=== PATIENT | male | born 1955 | race Caucasian/White ===

== ENCOUNTER 2019-10-29 09:16 | Day surgery (SDC) | payer MEDICARE ==
[~2019-10-29] VITALS: Ht 177.8 cm; Wt 108.1 kg
[2019-10-29 09:46] VITALS: BP 94/63; PULSE 68; TEMP 97.5
[2019-10-29] MEDS ORDERED: ASPIRIN E.C. 8181 MG PO (09:53)
[2019-10-29] MEDS ORDERED: BARACLUDE1 MG PO (09:54)
[2019-10-29] MEDS ORDERED: PEPCID 20MG TAB20 MG PO (09:54)
[2019-10-29] MEDS ORDERED: PRINZIDE 12.5 M1 TA1 PO (09:56)
[2019-10-29] MEDS ORDERED: LIPITOR 10MG10 MG PO (09:56)
[2019-10-29] MEDS ORDERED: GLUCOPHAGE500 MG/TAB PO (09:57)
[2019-10-29] MEDS ORDERED: CORGARD40 MG PO (09:57)
[2019-10-29] MEDS ORDERED: K-DUR20 MEQ PO (09:58)
--- NOTE | 2019-10-29 09:59 | NUR ---
TO RM AT 0925- CALL LIGHT IN REACH AT BEDSIDE.
[2019-10-29] MEDS ORDERED: ULTRAM 50MG TAB50 MG PO (10:03)
[2019-10-29 10:50] VITALS: BP 128/86; PULSE 68; TEMP 97.6
--- NOTE | 2019-10-29 10:50 | NUR ---
Patient arrives to [facility] via cart, accompanied by Endo RN Salima. Bedside report received. Patient to have clear liquids. He is drowsy, but aroused to name and ambulates with standby assist to chair in room. Monitoring is applied- VSS and WNL on room air. Spouse is at the bedside. Call light inreach. Denies pain or nausea.
[2019-10-29 11:05] VITALS: BP 127/83; PULSE 68
--- NOTE | 2019-10-29 11:05 | NUR ---
Patient is more awake. Dr. Mckeon is at the bedside and talks with the patient and his . Offered and receives juice to drink.
[2019-10-29 11:20] VITALS: BP 122/83; PULSE 62
[2019-10-29 11:35] VITALS: BP 126/82; PULSE 65
--- NOTE | 2019-10-29 11:50 | NUR ---
Patient has met discharge criteria. Discharge instructions discussed, denies any questions, and verbalizes understanding. PIV removed with catheter intact and hemostasis achieved. Escorted to exit via wheelchair by staff. Discharged to home with ride in private vehicle at 1150.
== END 2019-10-29 11:50 | disposition home or self-care (01) ==
LOC: SDCO 09:16
DX: K74.60 Unspecified cirrhosis of liver (principal); I85.10 Secondary esophageal varices without bleeding; I10 Essential (primary) hypertension; K21.9 Gastro-esophageal reflux disease without esophagitis; E11.42 Type 2 diabetes mellitus with diabetic polyneuropathy; Z79.84 Long term (current) use of oral hypoglycemic drugs; Z96.659 Presence of unspecified artificial knee joint; Z79.82 Long term (current) use of aspirin; Z90.49 Acquired absence of other specified parts of digestive tract; Z85.79 Personal history of other malignant neoplasms of lymphoid, hematopoietic and related tissues; Z86.73 Personal history of transient ischemic attack (TIA), and cerebral infarction without residual deficits
CPT/HCPCS: J2704; J7030

== ENCOUNTER 2019-11-26 09:13 | Day surgery (SDC) | payer MEDICARE ==
[~2019-11-26] VITALS: Ht 177.8 cm; Wt 109.1 kg
[~2019-11-26 09:13] MED LIST: ASPIRIN E.C. 8181 MG PO; BARACLUDE1 MG PO; CORGARD40 MG PO; GLUCOPHAGE500 MG/TAB PO; K-DUR20 MEQ PO; LIPITOR 10MG10 MG PO; PEPCID 20MG TAB20 MG PO; PRINZIDE 12.5 M1 TA1 PO; ULTRAM 50MG TAB50 MG PO
[2019-11-26] MEDS ORDERED: PLAVIX 75MG TAB75 MG PO (09:40)
[2019-11-26 10:10] VITALS: BP 99/72; PULSE 69; TEMP 97.6
[2019-11-26 11:40] VITALS: BP 112/78; PULSE 63; TEMP 98.1
--- NOTE | 2019-11-26 11:40 | NUR ---
Patient brought back to [facility] via cart. Transfered to chair with 2 assist. Ban RN at bedside for report. Placed on monitors, vital signs stable. Pt complains of pain 4/10 to throat and center chest. Spoke with MD start with liquid diet at this time. Water provided. Pt has home tramadol at bedside. Per MD may take. Call gaming within reach, at bedside. Will continue to monitor.
[2019-11-26 11:55] VITALS: BP 107/84; PULSE 67
--- NOTE | 2019-11-26 11:55 | NUR ---
Patient tolerating water without difficulty. Requesting cranberry juice at this time. Will continue to monitor.
[2019-11-26 12:10] VITALS: BP 121/73; PULSE 64
--- NOTE | 2019-11-26 12:10 | NUR ---
Patient states pain is more tolerable. Tolerating drinks without difficulty. Per Dr. Mckeon may take blood thinners starting tomorrow. Communicated to family. Vitals stable. Will monitor.
--- NOTE | 2019-11-26 12:30 | NUR ---
Discharge instructions reviewed with patient and . All questions answered. IV removed without difficulty. Patient to get dressed at this time.
[2019-11-26 12:40] VITALS: BP 112/78; PULSE 66
--- NOTE | 2019-11-26 12:40 | NUR ---
Patient brought down to lobby via wheel chair. To be driven home by .
== END 2019-11-26 12:40 | disposition home or self-care (01) ==
LOC: SDCO 09:13
DX: I85.00 Esophageal varices without bleeding (principal); K74.60 Unspecified cirrhosis of liver; I10 Essential (primary) hypertension; K21.9 Gastro-esophageal reflux disease without esophagitis; B18.1 Chronic viral hepatitis B without delta-agent; C85.90 Non-Hodgkin lymphoma, unspecified, unspecified site; E11.40 Type 2 diabetes mellitus with diabetic neuropathy, unspecified; Z86.73 Personal history of transient ischemic attack (TIA), and cerebral infarction without residual deficits; Z79.84 Long term (current) use of oral hypoglycemic drugs; Z79.02 Long term (current) use of antithrombotics/antiplatelets; Z79.82 Long term (current) use of aspirin; Z79.899 Other long term (current) drug therapy
CPT/HCPCS: J2704; J7030

== ENCOUNTER 2020-02-11 10:01 | Day surgery (SDC) | payer MEDICARE ==
[~2020-02-11] VITALS: Ht 177.8 cm; Wt 112.1 kg
[~2020-02-11 10:01] MED LIST changes: +PLAVIX 75MG TAB75 MG PO
[2020-02-11 10:36] VITALS: BP 117/77; PULSE 66; TEMP 97.7
[2020-02-11 11:35] VITALS: BP 122/87; PULSE 68; TEMP 97.1
--- NOTE | 2020-02-11 11:35 | NUR ---
Pt arrived back to room with Abdias Mendez RN via cart. Pt ambulated easily to chair with stand by assist. Received report at chairside from GOYO Calero. VSS and WNL and pt alert and oriented. Reviewed with pt the goals of discharge, and he agrees with plan. Cranberry juice brought per pt's request. Call light within reach and no further questions at this time.
--- NOTE | 2020-02-11 11:35 | NUR ---
Pt arrived back to room via cart with Andrea RN. Pt ambulated easily to chair with stand by assist. Pt awake, alert, and oriented. Received report at chairside from GOYO Calero. Reviewed with pt the goals for discharge. Pt agrees with plan and expresses understanding. VSS and WNL. Provider at chairside to review procedure with patient. Pt has no further questions at this time.
[2020-02-11 11:45] VITALS: BP 126/80; PULSE 66
--- NOTE | 2020-02-11 11:45 | NUR ---
Pt successfully finished cranberry juice without complaints of pain or nausea. Pt states that this is the "best he's felt" after a banding procedure. He is alert, awake, and oriented.
[2020-02-11 12:00] VITALS: BP 123/81; PULSE 65
--- NOTE | 2020-02-11 12:00 | NUR ---
Pt states that he is ready to go home, and he meets criteria for discharge. Provider already reviewed procedure and plan with patient at chair side. Pt has no further questions or concerns. VSS and WNL. Reviewed discharge information and educational packet including signs/symptoms to look for and when to call the doctor.
== END 2020-02-11 12:05 | disposition home or self-care (01) ==
LOC: SDCO 10:01
DX: K74.60 Unspecified cirrhosis of liver (principal); I85.10 Secondary esophageal varices without bleeding; E66.9 Obesity, unspecified; I10 Essential (primary) hypertension; E03.9 Hypothyroidism, unspecified; Z86.73 Personal history of transient ischemic attack (TIA), and cerebral infarction without residual deficits; E11.9 Type 2 diabetes mellitus without complications; E11.42 Type 2 diabetes mellitus with diabetic polyneuropathy; Z79.84 Long term (current) use of oral hypoglycemic drugs; Z90.49 Acquired absence of other specified parts of digestive tract; Z79.82 Long term (current) use of aspirin; Z96.659 Presence of unspecified artificial knee joint; Z85.72 Personal history of non-Hodgkin lymphomas
CPT/HCPCS: J2704; J7030

== ENCOUNTER 2020-03-24 10:15 | Day surgery (SDC) | payer MEDICARE ==
[~2020-03-24] VITALS: Ht 177.8 cm; Wt 107.7 kg
[2020-03-24] MEDS ORDERED: CEPHALEXIN500 M1 PO (10:40)
[2020-03-24 11:08] VITALS: BP 111/79; PULSE 70; TEMP 98.5
[2020-03-24 12:10] VITALS: BP 118/76; PULSE 64; TEMP 97.5
--- NOTE | 2020-03-24 12:10 | NUR ---
Patient arrives back to [facility] alert, denies pain or nausea. Patient monitor applied, vitals stable. Patient given muffin and juice.
[2020-03-24 12:25] VITALS: BP 117/78; PULSE 62
--- NOTE | 2020-03-24 12:25 | NUR ---
Patient tolerates muffin and juice without any nausea. Denies pain, vitals stable.
[2020-03-24 12:40] VITALS: BP 113/75; PULSE 63
--- NOTE | 2020-03-24 12:45 | NUR ---
Dismissal instructions gone over with patient. Patient voices understanding and all questions answered.
--- NOTE | 2020-03-24 12:55 | NUR ---
Patient discharged to private vehicle at patient enterance via wheelchair without any complications. Patient leaves thanking staff for services.
== END 2020-03-24 12:55 | disposition home or self-care (01) ==
LOC: SDCO 10:15
DX: K74.60 Unspecified cirrhosis of liver (principal); I85.10 Secondary esophageal varices without bleeding; I10 Essential (primary) hypertension; K21.9 Gastro-esophageal reflux disease without esophagitis; E11.9 Type 2 diabetes mellitus without complications; Z86.73 Personal history of transient ischemic attack (TIA), and cerebral infarction without residual deficits; Z79.84 Long term (current) use of oral hypoglycemic drugs; Z96.652 Presence of left artificial knee joint; Z90.49 Acquired absence of other specified parts of digestive tract; Z79.02 Long term (current) use of antithrombotics/antiplatelets
CPT/HCPCS: J7030

== ENCOUNTER 2021-03-30 07:50 | Day surgery (SDC) | payer MEDICARE ==
[~2021-03-30] VITALS: Ht 177.8 cm; Wt 110.5 kg
[~2021-03-30 07:50] MED LIST changes: +CEPHALEXIN500 M1 PO
[2021-03-30 08:41] VITALS: BP 126/85; PULSE 70; TEMP 97.4
[2021-03-30 09:15] VITALS: BP 101/65; PULSE 75; TEMP 97.6
--- NOTE | 2021-03-30 09:15 | NUR ---
TRANSPORTED BY CART TO DISCHARGE ROOM ACCOMPANIED BY A NURSE, ABLE TO AMBULATE TO A RECLINER W/ STANDBY ASSISTANCE, ALERT AND ORIENTED X3, SPOUSE IN THE ROOM, DENIES DISCOMFORT OR NAUSEA, IV INFUSION W/O DIFFICULTY, REQUESTING JUICE AND MUFFIN, CALL LIGHT IN REACH, MONITORS ON AND ALARMS SET.
[2021-03-30 09:30] VITALS: BP 103/65; PULSE 75
--- NOTE | 2021-03-30 09:30 | NUR ---
TOLERATED FLUIDS AND MUFFIN W/O DIFFICULTY, VITAL SIGNS REMAIN STABLE
[2021-03-30 09:45] VITALS: BP 104/60; PULSE 75
--- NOTE | 2021-03-30 09:45 | NUR ---
IV DC'D IN RIGHT HAND AND HARVEY W/ ABBY AT THE SITE, ABLE TO CHANGE INTO STREET CLOTHS W/O ASSISTANCE, DISCHARGE INSTRUCTIONS REVIEWED AND A COPY SENT WITH PATIENT IN HIS PACKET, SPOUSE LEFT TO BRING CAR TO OUTPATIENT ENTERENCE.
== END 2021-03-30 09:55 | disposition home or self-care (01) ==
LOC: SDCO 07:50
DX: K74.60 Unspecified cirrhosis of liver (principal); I85.10 Secondary esophageal varices without bleeding; I10 Essential (primary) hypertension; K21.9 Gastro-esophageal reflux disease without esophagitis; E11.9 Type 2 diabetes mellitus without complications; Z79.01 Long term (current) use of anticoagulants; Z79.899 Other long term (current) drug therapy; Z79.82 Long term (current) use of aspirin; Z86.73 Personal history of transient ischemic attack (TIA), and cerebral infarction without residual deficits; Z85.72 Personal history of non-Hodgkin lymphomas
CPT/HCPCS: J2704; J7120

== ENCOUNTER 2022-04-19 09:01 | Day surgery (SDC) | payer MEDICARE ==
[~2022-04-19] VITALS: Ht 177.8 cm; Wt 106.9 kg
[2022-04-19 10:55] VITALS: BP 97/71; PULSE 64
[2022-04-19 11:10] VITALS: BP 109/82; PULSE 62
[2022-04-19 11:25] VITALS: BP 106/69; PULSE 60
--- NOTE | 2022-04-19 11:33 | NUR ---
1055: Patient brought back into bay 4 from endo procedure. Report received from GOYO Borrego. Patient vitally stable on room air. Denies pain or nausea. Requesting vanilla pudding and sprite. at bedside. Call light left within reach. 1110: Patient tolerating food and drink well. Denies pain or nausea. Vital signs stable on room air. 1115: Dr. Mckeon in to see patient 1125: Patient meets discharge criteria. IV removed without complications. Went through discharge instructions with patient and . Questions answered. 1130: Patient got dressed and escorted to the patient entrance via wheelchair. Patient got into personal vehicle and left in the care of their family member.
[2022-04-19 16:22] VITALS: BP 123/75; PULSE 62; TEMP 96.7
== END 2022-04-19 11:33 | disposition home or self-care (01) ==
LOC: SDCO 09:01
DX: I85.10 Secondary esophageal varices without bleeding (principal); K74.60 Unspecified cirrhosis of liver
CPT/HCPCS: J2704; J7030

== ENCOUNTER 2024-04-02 09:15 | Day surgery (SDC) | payer MEDICARE ==
[~2024-04-02] VITALS: Ht 177.8 cm; Wt 99.6 kg
[~2024-04-02 09:15] MED LIST changes: +FLONASEALLERGY NS; +LR 1,000 ML IV SCH; +Ondansetron 4 MG/2 ML VIAL IV PRN
[2024-04-02 10:23] VITALS: BP 104/69; PULSE 63; TEMP 97.9
--- NOTE | 2024-04-02 10:57 | NUR ---
The patient ambulated back to [facility] independently using a steady gait and appeared to tolerate the activity well. Vital signs obtained. Consent signed. 20G IV started in right wrist with one stick, LR Infusing without difficulty. Assessment completed. Home medications reconcilled. Warm blanket provided. , Gideon, at bedside. Denies any further needs at this time.
[2024-04-02] MEDS ORDERED: Lidocaine PF 2% (20 MG/ML) 5 ML VIAL ONE (11:02)
[2024-04-02 11:25] VITALS: BP 99/66; PULSE 64; TEMP 97.9
[2024-04-02 11:40] VITALS: BP 105/73; PULSE 60
[2024-04-02 11:52] VITALS: BP 97/53; PULSE 65
--- NOTE | 2024-04-02 11:53 | NUR ---
1125- Pt arrived to [facility]- pt ambulated from cart to chair with standby assist 1130- pt tolerating po intake well 1150- pt verbalizes understanding discharge materials 1155- MD Mike in room 1150- pt dressed self 1156- pt escorted out via wheelchair with to vehicle
== END 2024-04-02 11:56 | disposition home or self-care (01) ==
LOC: SDCO 09:15
DX: I85.00 Esophageal varices without bleeding (principal); K29.30 Chronic superficial gastritis without bleeding; K74.60 Unspecified cirrhosis of liver; K76.6 Portal hypertension; K31.89 Other diseases of stomach and duodenum; Z95.818 Presence of other cardiac implants and grafts
CPT/HCPCS: J2704; J7120